=== PATIENT | female | born 1985 | race Caucasian/White ===

== ENCOUNTER 2023-04-12 10:26 | Outpatient (OUT) | payer OTHER, SELFPAY ==
--- NOTE | 2023-04-12 | XR_ITS ---
The [address] [address] Patient Name: LORI MENDOZA MRN: [id number] date: 1985 Sex: F Assigned Patient Location: RAD Current Patient Location: RAD Accession/Order Number: [id number] Exam Date: 04/12/2023 14:12 Report Date: 04/12/2023 14:34 At the request of: JULISAS RODRIGUEZ Procedure: XR foot RT min 3V XR foot RT min 3V, 04/12/2023 2:12 PM EDT, [place]001 INDICATION: RIGHT FOOT PAIN COMPARISON: None TECHNIQUE: 4 images are submitted. FINDINGS: The bones appear well mineralized. No acute fracture or subluxation is identified. The joint spaces are maintained. No destructive osseous process is identified. The visualized soft tissues appear unremarkable. XR/XR foot RT min 3V IMPRESSION: No acute traumatic abnormality or malalignment. Electronically authenticated by: BOB BOSWELL Date: 04/12/2023 14:34
== END 2023-04-12 10:27 | disposition home or self-care (01) ==
LOC: RAD 04-14 10:27
PROVIDERS: Visit Provider Physician Assistant
DX: M79.671 Pain in right foot (principal)
CPT/HCPCS: 73630